=== PATIENT | male | born 1975 | race Hispanic/Latino ===

== ENCOUNTER 2017-08-14 22:09 | Emergency (ER) | payer OTHER ==
[2017-08-14 22:43] VITALS: TEMP 97.4; O2SAT 100
[2017-08-14 23:13] LABS: BASO # 0.04 K/mm3 (0.0-2.0); BASO % 0.4 % (0.0-3.0); EOS # 0.1 (0.0-0.7); GRAN # 6.53 (1.4-6.5); GRAN % 65.8 % (50.0-68.0); HEMATOCRIT 36.8 % (42.0-52.0); LYMPH # 2.6 (1.2-3.4); LYMPH % 26.4 % (22.0-35.0); MEAN CELL VOLUME 87.2 fl (80.0-105.0); MEAN CORPUSCULAR HGB CONC 32.1 g/dl (31.0-37.0); MONO # 0.6 (0.1-0.6); MONO % 6.4 % (1.0-6.0); RED CELL DISTRIBUTION WIDTH 15.5 % (11.5-14.5); WHITE BLOOD COUNT 9.9 10^3/ul (4.5-11.0)
[2017-08-14 23:24] LABS: ALB/GLOB RATIO 1.2 (1.1-1.8); ALKALINE PHOSPHATASE 53 U/L (38-126); ALT/SGPT 43 U/L (7-56); AST/SGOT 33 U/L (17-59); BILIRUBIN,TOTAL 0.6 mg/dL (0.2-1.3); BLOOD UREA NITROGEN 14 mg/dL (7-21); CALCIUM 9.5 mg/dL (8.4-10.5); CARBON DIOXIDE 24 mmol/L (21-33); CHLORIDE 105 mmol/L (98-107); GFR AFRICAN-AMERICAN > 60; GLUCOSE,RANDOM 104 mg/dL (70-110); LIPASE 229 U/L (23-300); POTASSIUM 4.4 mmol/L (3.6-5.0); SODIUM 141 mmol/L (132-148); TOTAL PROTEIN 7.9 g/dL (5.8-8.3)
--- NOTE | 2017-08-15 00:46 | ED PDOC ---
Arrival/HPI - General Chief Complaint: Alcohol Ingestion Time Seen by Provider: 08/14/17 22:46 Historian: Patient - History of Present Illness Narrative History of Present Illness (Text): 08/15/17 00:30 42-year-old male presents today brought in by ambulance after drinking too much. Patient states he was feeling sick earlier today. Patient states he had 5 vodka drinks and had mussels for dinner. Patient states he thinks he drank too much. Patient teary-eyed in the emergency room stating that he's been under a lot of stress lately and he is dealing with the loss of his father in March. Patient denies chest pain or shortness of breath. Denies abdominal pain. Patient states than nausea resolved after he vomited twice. Patient denies numbness weakness or tingling in the extremities. Patient states he feels cold. Patient's friend states he was leaning over the car door for an hour in the cold trying to vomit. Patient denies suicidal or homicidal ideation. Time/Duration: 1 hour Symptom Onset: Gradual Symptom Course: Improving Past Medical History - Provider Review Nursing Documentation Reviewed: Yes - Travel History Have you recently traveled outside [place] w/in the past 3 mons?: No - Psychiatric Hx Substance Use: Yes Family/Social History - Physician Review Nursing Documentation Reviewed: Yes Family/Social History: Unknown Family HX Smoking Status: Vapour Hx Alcohol Use: No Hx Substance Use: Yes Substance used: MJ Allergies/Home Meds Allergies/Adverse Reactions: Allergies No Known Allergies Allergy (Verified 08/14/17 22:46) Home Medications: Home Meds Medication Instructions Recorded Confirmed Albuterol/Ipratropium [Duoneb 3 3 ml IH PRN PRN 08/15/17 08/15/17 MG/3 Ml-0.5 MG/3 Ml 3 Ml] Simvastatin [Zocor] 20 mg PO DAILY 08/15/17 08/15/17 Testosterone [Axiron] 30 mg TD DAILY 08/15/17 08/15/17 Review of Systems - Review of Systems Constitutional: absent: Fatigue, Fevers ENT: absent: Sore Throat, Sinus Congestion Respiratory: absent: SOB, Cough Cardiovascular: absent: Chest Pain, Palpitations Gastrointestinal: Nausea, Vomiting. absent: Abdominal Pain Genitourinary Male: absent: Dysuria, Frequency, Hematuria Musculoskeletal: absent: Arthralgias, Back Pain, Neck Pain Skin: absent: Rash, Pruritis Neurological: absent: Headache, Dizziness Psychiatric: Depression. absent: Anxiety, Suicidal Ideation Physical Exam Vital Signs Reviewed: Yes Vital Signs Temp Pulse Resp BP Pulse Ox 08/15/17 02:20 67 20 119/54 L 100 08/15/17 00:30 63 18 129/75 100 08/14/17 22:25 97.4 F L 58 L 18 129/83 100 Temperature: Afebrile Blood Pressure: Normal Pulse: Regular Respiratory Rate: Normal Appearance: Positive for: Well-Appearing, Non-Toxic, Comfortable Pain Distress: None Mental Status: Positive for: Alert and Oriented X 3 - Systems Exam Head: Present: Atraumatic Mouth: Present: Moist Mucous Membranes Neck: Present: Normal Range of Motion Respiratory/Chest: Present: Clear to Auscultation Cardiovascular: Present: Regular Rate and Rhythm Abdomen: Present: Normal Bowel Sounds. No: Tenderness, Distention, Peritoneal Signs, Rebound, Guarding Back: Present: Normal Inspection. No: Midline Tenderness, Paraspinal Tenderness Lower Extremity: Present: Normal ROM. No: CALF TENDERNESS Neurological: Present: GCS=15, Speech Normal Skin: Present: Warm, Dry, Normal Color. No: Rashes Psychiatric: Present: Alert, Oriented x 3 Medical Decision Making ED Course and Treatment: 08/15/17 00:49 42yr old male biba for alcohol intoxication, vomiting, chills after drinking vodka. pt non toxic well appearing; stable vitals alert and oriented. pt tearful in ER. expressing depression without SI. pts mother and friend at bedside. Patient is nontoxic well-appearing in no distress vital signs are stable. CBC WNL CMP WNL Tylenol WNL Salicylate WNL Alcohol level WNL Urine drug screen wnl UA; wnl cxr: FINDINGS: Lungs: Minimal atelectatic change is seen at the left lung base. Otherwise, there is no confluent infiltrate. Pleural space: No pleural effusions. No pneumothorax. Heart: The cardiac silhouette appears enlarged. Mediastinum: Unremarkable. Bones/joints: No visualized acute osseous abnormality. IMPRESSION: 1. The cardiac silhouette appears enlarged. 2. Minimal atelectatic change is seen at the left lung base. Otherwise, there is no confluent infiltrate. ekg: sinus bradycardia with fusion complexes at [address] elevations. reviewed by dr. conrad. pt reassessment; pt feeling better. alert oriented. no distress. stable vitals. pt is medically cleared for PES evaluation Patient was seen and evaluated by PES screener: MIO 08/15/17 01:57 pt reassessment; pt feeling better; denies any complaints; abdomen non tender; no cp or sob. denies nausea. afebrile. stable vitals. will d/c home to f/u with psych and PMD. advised immediate return if symptoms worsen,persist or if new symptoms develop. pt verbalized understanding of d/c instructions and need for immediate f/u pt seen and evaluated by dr. conrad. Impression; alcohol abuse, adjustment disorder Followup with behavioral health increase fluids follow up with the primary care physician within the next 2 days return if symptoms worsen,persist or if new symptoms develop. - Lab Interpretations Lab Results: 08/14/17 23:00 08/14/17 23:00 Lab Results 08/15/17 00:50: Urine Opiates Screen Negative, Urine Methadone Screen Negative, Ur Barbiturates Screen Negative, Ur Phencyclidine Scrn Negative, Ur Amphetamines Screen Negative, U Benzodiazepines Scrn Negative, U Oth Cocaine Metabols Negative, U Cannabinoids Screen Negative 08/15/17 00:50: Urine Color Straw, Urine Appearance Clear, Urine pH 6.0, Ur Specific [place] <= 1.005, Urine Protein Negative, Urine Glucose (UA) Negative, Urine Ketones Negative, Urine Blood Negative, Urine Nitrate Negative, Urine Bilirubin Negative, Urine Urobilinogen 0.2, Ur Leukocyte Esterase Negative 08/14/17 23:00: Alcohol, Quantitative 149 H 08/14/17 23:00: Salicylates < 1 L, Acetaminophen < 10.0 L 08/14/17 23:00: Sodium 141, Potassium 4.4, Chloride 105, Carbon Dioxide 24, Anion Gap 16, BUN 14, Creatinine 1.0, Est GFR ( Amer) > 60, Est GFR (Non- Af Amer) > 60, Random Glucose 104, Calcium 9.5, Total Bilirubin 0.6, AST 33, ALT 43, Alkaline Phosphatase 53, Total Protein 7.9, Albumin 4.3, Globulin 3.6, Albumin/Globulin Ratio 1.2, Lipase 229 08/14/17 23:00: WBC 9.9, RBC 4.22, Hgb 11.8 L, Hct 36.8 L, MCV 87.2, MCH 28.0, MCHC 32.1, RDW 15.5 H, Plt Count 217, MPV 9.0, Gran % 65.8, Lymph % (Auto) 26.4 , [place] % (Auto) 6.4 H, Eos % (Auto) 1.0 L, Baso % (Auto) 0.4, Gran # 6.53 H, Lymph # 2.6, [place] # 0.6, Eos # 0.1, Baso # 0.04 - RAD Interpretation Radiology Orders: 08/14/17 22:48 CHEST PORTABLE [RAD] Stat Disposition/Present on Arrival - Present on Arrival Any Indicators Present on Arrival: No History of DVT/PE: No History of Uncontrolled Diabetes: No Urinary Catheter: No History of Decub. Ulcer: No History Surgical Site Infection Following: None - Disposition Have Diagnosis and Disposition been Completed?: Yes Diagnosis: Alcohol use, Adjustment disorder Disposition: HOME/ ROUTINE Disposition Time: 02:01 Patient Plan: Discharge Patient Problems: Current Active Problems Problem Status Onset Adjustment disorder Acute Alcohol use Acute Condition: GOOD Additional Instructions: Followup with behavioral health increase fluids follow up with the primary care physician within the next 2 days return if symptoms worsen,persist or if new symptoms develop. Referrals: Albert BURTON,Patricio Mason MD [Primary Care Provider] - Follow up with primary Forms: [employer] (T[place]anian), WORK NOTE
[2017-08-15 02:10] LABS: URINE BILIRUBIN NEGATIVE (NEGATIVE); URINE BLOOD NEGATIVE (NEGATIVE); URINE GLUCOSE (UA) NEGATIVE (NEGATIVE); URINE KETONE NEGATIVE (NEGATIVE); URINE LEUKOCYTE ESTERASE NEGATIVE Leu/uL (NEGATIVE); URINE PROTEIN NEGATIVE mg/dL (<30 mg/dL); URINE UROBILINOGEN 0.2 E.U./dL (<1 E.U./dL)
[2017-08-15 02:14] LABS: URINE APPEARANCE CLEAR (CLEAR); URINE COLOR STRAW (YELLOW)
[2017-08-15 02:21] VITALS: BP 119/54; PULSE 67; RESP 20
--- NOTE | 2017-08-15 02:45 | RAD ---
EXAM: XR Chest, 1 View EXAM DATE/TIME: 08/14/2017 10:48 PM CLINICAL HISTORY: The patient age is 42 years old and is male; Screening exam; Other screening; Additional info: [facility] exam id and description: Rad chest p chest portable TECHNIQUE: Frontal view of the chest. COMPARISON: No relevant prior studies available. FINDINGS: Lungs: Minimal atelectatic change is seen at the left lung base. Otherwise, there is no confluent infiltrate. Pleural space: No pleural effusions. No pneumothorax. Heart: The cardiac silhouette appears enlarged. Mediastinum: Unremarkable. Bones/joints: No visualized acute osseous abnormality. IMPRESSION: 1. The cardiac silhouette appears enlarged. 2. Minimal atelectatic change is seen at the left lung base. Otherwise, there is no confluent infiltrate.
--- NOTE | 2017-08-15 17:17 | CARD ---
APPROVED REPORT EKG Measurement Heart [id number] [id number] <Conclusion> Sinus bradycardia Minimal voltage criteria for LVH, may be normal variant Borderline ECG
== END 2017-08-15 02:49 | disposition home or self-care (01) ==
LOC: ED 22:09
DX: F10.10 Alcohol abuse, uncomplicated (principal); F43.20 Adjustment disorder, unspecified